=== PATIENT | female | born 1995 | race Two or more races ===

== ENCOUNTER 2024-04-22 12:35 | Emergency (ER) | payer OTHER ==
[~2024-04-22] VITALS: Ht 165.1 cm; Wt 54.4 kg
[2024-04-22] MEDS ORDERED: PRENATAL + DHA1 EAC1 (12:50)
[2024-04-22 14:39] LABS: HEMATOCRIT 36.4 % (36.0-45.00); HEMOGLOBIN 12.6 g/dL (12.0-15.00); MEAN CELL VOLUME 94.5 fL (80.00-100.00); MEAN CORPUSCULAR HEMOGLOBIN 32.6 pg (27.00-32.0); MEAN CORPUSCULAR HGB CONC 34.5 g/dl (32.0-36.0); PLATELET COUNT 192 K/uL (150-450); RED BLOOD COUNT 3.85 M/uL (4.00-6.00); RED CELL DISTRIBUTION WIDTH 12.9 % (11.5-14.5)
[2024-04-22 14:57] LABS: PH,URINE 7.5 (5.0-8.0); URINE APPEARANCE Clear; URINE BILIRRUBIN Negative (NEGATIVE); URINE BLOOD Negative; URINE COLOR Yellow; URINE GLUCOSE Negative (NEGATIVE); URINE KETONE Negative (NEGATIVE); URINE LEUKOCYTE Negative; URINE NITRATE Negative; URINE PROTEIN Negative (NEGATIVE); URINE UROBILINOGEN 0.2 E.U./dl
[2024-04-22 14:59] LABS: URINE BACTERIA 392.8 uL (0.0-1933); URINE EPITHELIAL CELLS 9.1 uL (0.0-38.8); URINE WBC 2.5 uL (0.0-23.2)
[2024-04-22 15:03] LABS: CALCIUM 8.4 mg/dL (8.5-10.1); CREATININE SERUM 0.51 mg/dL (0.55-1.02); GFR 143.59; POTASSIUM 3.86 mEq/L (3.5-5.1)
[2024-04-22] MEDS ORDERED: ACETAMINOPHEN 500 MG GEL..CAP PO ONE (16:30)
== END 2024-04-22 17:54 | disposition home or self-care (01) ==
LOC: ER 12:38
PROVIDERS: Emergency Medicine
DX: O20.8 Other hemorrhage in early pregnancy (principal); Z3A.20 20 weeks gestation of pregnancy; Z88.2 Allergy status to sulfonamides

== ENCOUNTER 2024-05-25 12:24 | Outpatient (CLI) | payer OTHER ==
[~2024-05-25] VITALS: Ht 165.1 cm; Wt 63.5 kg
[2024-05-25 11:36] VITALS: BP 90/59
[~2024-05-25 12:24] MED LIST: PRENATAL + DHA1 EAC1
[2024-05-25] MEDS ORDERED: RINGERS SOLUTION,LACTATED 1,000 ML IV SCH (13:00)
[2024-05-25] MEDS ORDERED: FOLIC ACID0.8 M1 PO (13:03)
[2024-05-25] MEDS ORDERED: ANTIBIOTIC28.4 GM (13:04)
[2024-05-25 13:52] LABS: PH,URINE 7.5 (5.0-8.0); URINE APPEARANCE Clear; URINE BILIRRUBIN Negative (NEGATIVE); URINE BLOOD Negative; URINE COLOR Yellow; URINE GLUCOSE Negative (NEGATIVE); URINE KETONE Negative (NEGATIVE); URINE LEUKOCYTE Negative; URINE NITRATE Negative; URINE PROTEIN Negative (NEGATIVE)
[2024-05-25 13:53] LABS: URINE BACTERIA 2394.9 uL (0.0-1933); URINE EPITHELIAL CELLS 33.7 uL (0.0-38.8); URINE WBC 22.6 uL (0.0-23.2)
[2024-05-25 13:57] LABS: HEMATOCRIT 36.3 % (36.0-45.00); HEMOGLOBIN 12.2 g/dL (12.0-15.00); MEAN CELL VOLUME 95.5 fL (80.00-100.00); MEAN CORPUSCULAR HEMOGLOBIN 31.9 pg (27.00-32.0); MEAN CORPUSCULAR HGB CONC 33.4 g/dl (32.0-36.0); PLATELET COUNT 178 K/uL (150-450); RED BLOOD COUNT 3.81 M/uL (4.00-6.00); RED CELL DISTRIBUTION WIDTH 12.2 % (11.5-14.5)
[2024-05-25 14:05] LABS: URINE CAST 0.44 uL (0.0-1.40); URINE RBC 1.6 uL (0.0-20.8)
[2024-05-25 15:15] VITALS: BP 90/59
[2024-05-25] MEDS ORDERED: CEFAZOLIN SODIUM 1,000 MG VIAL ONE (17:39)
[2024-05-25] MEDS ORDERED: CEFAZOLIN SODIUM 1,000 MG VIAL IV ONE (17:45)
[2024-05-25 19:55] VITALS: BP 98/59
[2024-05-25 23:13] VITALS: BP 99/61
[2024-05-26] MEDS ORDERED: CEFAZOLIN SODIUM 1,000 MG VIAL ONE ×2 (00:11→09:30)
[2024-05-26] MEDS ORDERED: CEFAZOLIN SODIUM 1,000 MG in DEXTROSE 5 % IN WATER 50 ML IV SCH (01:00)
[2024-05-26 03:12] VITALS: BP 87/47; O2SAT 100
[2024-05-26 07:17] VITALS: BP 85/51
[2024-05-26] MEDS ORDERED: CEFAZOLIN SODIUM 1,000 MG VIAL IV SCH (10:00)
[2024-05-26 12:51] VITALS: BP 102/60
== END 2024-05-26 12:51 | disposition home or self-care (01) ==
LOC: OBS/DEL 12:24
PROVIDERS: Obstetrics & Gynecology; ATTEND Obstetrics & Gynecology
DX: O26.892 Other specified pregnancy related conditions, second trimester (principal); O46.92 Antepartum hemorrhage, unspecified, second trimester; Z3A.25 25 weeks gestation of pregnancy

== ENCOUNTER 2024-06-06 16:18 | Outpatient (CLI) | payer OTHER ==
[2024-06-06 15:46] VITALS: BP 87/56
[~2024-06-06 16:18] MED LIST changes: +ANTIBIOTIC28.4 GM; +FOLIC ACID0.8 M1 PO
[2024-06-06] MEDS ORDERED: RINGERS SOLUTION,LACTATED 1,000 ML IV SCH (16:30)
[2024-06-06] MEDS ORDERED: DOCUSATE SODIUM 100MG CAP PO SCH (17:00)
[2024-06-06 17:25] LABS: HEMATOCRIT 36.1 % (36.0-45.00); HEMOGLOBIN 12.2 g/dL (12.0-15.00); MEAN CELL VOLUME 94.4 fL (80.00-100.00); MEAN CORPUSCULAR HGB CONC 33.9 g/dl (32.0-36.0); PLATELET COUNT 197 K/uL (150-450); RED BLOOD COUNT 3.82 M/uL (4.00-6.00); RED CELL DISTRIBUTION WIDTH 12.6 % (11.5-14.5); URINE APPEARANCE Clear; URINE BILIRRUBIN Negative (NEGATIVE); URINE BLOOD Negative; URINE COLOR Yellow; URINE GLUCOSE Negative (NEGATIVE); URINE KETONE Negative (NEGATIVE); URINE LEUKOCYTE Negative; URINE NITRATE Negative; URINE PROTEIN Negative (NEGATIVE)
[2024-06-06 17:26] LABS: URINE BACTERIA 4142.8 uL (0.0-1933); URINE EPITHELIAL CELLS 45.7 uL (0.0-38.8); URINE RBC 2.6 uL (0.0-20.8); URINE WBC 15.1 uL (0.0-23.2)
[2024-06-06 19:13] VITALS: BP 96/58
[2024-06-06 23:23] VITALS: BP 113/67
[2024-06-07 04:00] VITALS: BP 90/60
[2024-06-07 07:24] VITALS: BP 92/56
[2024-06-07 11:21] VITALS: BP 102/67
[2024-06-07 12:46] VITALS: BP 102/67
== END 2024-06-07 13:01 | disposition home or self-care (01) ==
LOC: OBS/DEL 16:18
PROVIDERS: Obstetrics & Gynecology; ATTEND Obstetrics & Gynecology
DX: O26.892 Other specified pregnancy related conditions, second trimester (principal); K59.00 Constipation, unspecified; R10.2 Pelvic and perineal pain; Z3A.26 26 weeks gestation of pregnancy

== ENCOUNTER 2024-06-18 09:21 | Outpatient (CLI) | payer OTHER | END 2024-06-18 09:22 | disposition home or self-care (01) | LOC: PRENATAL 09:21 | PROVIDERS: ATTEND Obstetrics & Gynecology Maternal & Fetal Medicine | DX: O26.849 Uterine size-date discrepancy, unspecified trimester (principal); O36.8199 Decreased fetal movements, unspecified trimester, other fetus; Z3A.29 29 weeks gestation of pregnancy ==

== ENCOUNTER 2024-08-01 09:14 | Outpatient (CLI) | payer OTHER | END 2024-08-01 09:16 | disposition home or self-care (01) | LOC: PRENATAL 09:14 | PROVIDERS: ATTEND Obstetrics & Gynecology Maternal & Fetal Medicine | DX: O26.849 Uterine size-date discrepancy, unspecified trimester (principal); O36.8199 Decreased fetal movements, unspecified trimester, other fetus; Z3A.35 35 weeks gestation of pregnancy ==

== ENCOUNTER 2024-09-03 19:09 | Inpatient (IN) | payer OTHER ==
[~2024-09-03] VITALS: Ht 165.1 cm; Wt 3.2 kg
[2024-09-03 19:14] VITALS: BP 110/66
[2024-09-03 19:19] VITALS: BP 110/66
[2024-09-03] MEDS ORDERED: RINGERS SOLUTION,LACTATED 1,000 ML IV SCH (20:45)
[2024-09-03 20:47] LABS: BASO % 0.3 % (0.1-1.2); EOS # 0.11 (0.04-0.54); EOS % 1.3 % (0.7-7.0); LYMPH # 1.38 (1.18-3.74); LYMPH % 15.7 % (19.3-53.1); MEAN PLATELET VOLUME 12.60 fl (9.4-12.4); MONO # 0.50 (0.24-0.82); MONO % 5.7 % (4.7-12.5); NEUT # 6.71 (1.56-6.13); NEUT % 76.5 % (34.0-71.1); RED CELL DISTRIBUTION WIDTH 12.9 % (11.6-14.4)
[2024-09-03 20:48] LABS: URINE APPEARANCE Clear; URINE BILIRRUBIN Negative (NEGATIVE); URINE BLOOD Negative; URINE COLOR Yellow; URINE GLUCOSE Negative (NEGATIVE); URINE KETONE Negative (NEGATIVE); URINE LEUKOCYTE Negative; URINE NITRATE Negative; URINE PROTEIN Negative (NEGATIVE); URINE UROBILINOGEN 0.2 E.U./dl
[2024-09-03 20:51] LABS: URINE BACTERIA 209.7 uL (0.0-1933); URINE EPITHELIAL CELLS 10.8 uL (0.0-38.8); URINE WBC 1.8 uL (0.0-23.2)
[2024-09-03 21:10] LABS: INR < 0.93
[2024-09-03 21:16] LABS: URINE CAST 0.00 uL (0.0-1.40); URINE RBC 0.2 uL (0.0-20.8)
[2024-09-03] MEDS ORDERED: MISOPROSTOL 25 MCG TABLET VAG STA (22:13)
[2024-09-03] MEDS ORDERED: MORPHINE SULFATE 4 MG/ML CARTRIDGE IV PRN (23:00)
[2024-09-03 23:26] VITALS: BP 113/56; O2SAT 100
[2024-09-04 03:14] VITALS: BP 108/65
[2024-09-04 07:43] VITALS: BP 107/71
[2024-09-04 08:54] VITALS: BP 105/58
[2024-09-04] MEDS ORDERED: DIPHENHYDRAMINE HCL 50 MG/ML VIAL 1ML IV NR (09:30)
[2024-09-04 11:17] VITALS: BP 102/63
[2024-09-04] MEDS ORDERED: OXYTOCIN 1,000 ML IV SCH ×2 (15:00→18:15)
[2024-09-04 15:08] VITALS: BP 104/66
[2024-09-04] MEDS ORDERED: KETOROLAC TROMETHAMINE 60 MG VIAL IM STA (18:08)
[2024-09-04] MEDS ORDERED: CHLORHEXIDINE GLUCONATE 120 ML BOTTLE TOP SCH (18:15)
[2024-09-04] MEDS ORDERED: RINGERS SOLUTION,LACTATED 1,000 ML IV SCH (18:15)
[2024-09-04] MEDS ORDERED: ERYTHROMYCIN BASE OPHT 1GM EACH TUBE OP ONE (18:30)
[2024-09-04] MEDS ORDERED: OXYTOCIN 10 UNITS/ML VIAL IV ONE (18:30)
[2024-09-04] MEDS ORDERED: MORPHINE SULFATE 4 MG/ML VIAL IV ONE ×2 (19:25→20:50)
[2024-09-04 21:24] LABS: BASO % 0.3 % (0.1-1.2); EOS # 0.01 (0.04-0.54); EOS % 0.1 % (0.7-7.0); LYMPH # 0.97 (1.18-3.74); LYMPH % 6.3 % (19.3-53.1); MEAN PLATELET VOLUME 12.50 fl (9.4-12.4); MONO # 0.70 (0.24-0.82); MONO % 4.5 % (4.7-12.5); NEUT # 13.67 (1.56-6.13); NEUT % 88.5 % (34.0-71.1); RED CELL DISTRIBUTION WIDTH 12.6 % (11.6-14.4)
[2024-09-04 22:42] VITALS: BP 114/73
[2024-09-05] MEDS ORDERED: KETOROLAC TROMETHAMINE 30 MG VIAL IM SCH (01:00)
[2024-09-05 02:11] VITALS: BP 107/70
[2024-09-05 05:58] VITALS: BP 100/63
[2024-09-05 08:00] VITALS: BP 109/71
[2024-09-05] MEDS ORDERED: BISACODYL 10 MG/SUPP.RECT SUPP.RECT RECTAL STA (13:25)
[2024-09-05] MEDS ORDERED: ACETAMINOPHEN 325 MG TABLET PO PRN (13:30)
[2024-09-05] MEDS ORDERED: OxyCODONE HCL 5 MG TABLET (ROXICODONE) PO PRN (13:30)
[2024-09-05 16:39] VITALS: BP 100/68
[2024-09-06 02:37] VITALS: BP 102/65
[2024-09-06 08:52] VITALS: BP 120/82
[2024-09-06 16:16] VITALS: BP 109/72
[2024-09-07] VITALS: BP 114/73
[2024-09-07 08:14] VITALS: BP 97/60
== END 2024-09-07 19:03 | disposition home or self-care (01) | DRG 788 ==
LOC: O/R 19:09 → LDR 19:09 → O/R 09-04 16:59 → OB/GYN 09-04 19:17
PROVIDERS: ADMIT Obstetrics & Gynecology; ATTEND Obstetrics & Gynecology
PROC: 3E0P7VZ Introduction of Hormone into Female Reproductive, Via Natural or Artificial Opening (ICD-10-PCS; 2024-09-03)
PROC: 4A1HXCZ Monitoring of Products of Conception, Cardiac Rate, External Approach (ICD-10-PCS; 2024-09-03)
PROC: 3E033VJ Introduction of Other Hormone into Peripheral Vein, Percutaneous Approach (ICD-10-PCS; 2024-09-04)
PROC: 10D00Z1 Extraction of Products of Conception, Low, Open Approach (ICD-10-PCS; principal; 2024-09-04 16:45)
DX: O82 Encounter for cesarean delivery without indication (principal); O62.0 Primary inadequate contractions; Z3A.39 39 weeks gestation of pregnancy; Z37.0 Single live birth

== ENCOUNTER 2025-02-10 18:02 | Emergency (ER) | payer OTHER ==
[~2025-02-10] VITALS: Ht 165.1 cm; Wt 73.5 kg
[2025-02-10 18:26] VITALS: BP 86/60; O2SAT 99
[2025-02-10] MEDS ORDERED: PRENATAL + DHA1 EAC1 PO (18:29)
[2025-02-10] MEDS ORDERED: METOCLOPRAMIDE HCL 5 MG/ML VIAL IM ONE (19:00)
[2025-02-10] MEDS ORDERED: ACETAMINOPHEN 500 MG GEL..CAP PO ONE ×2 (19:00→20:13)
[2025-02-10] MEDS ORDERED: 0.9 % SODIUM CHLORIDE 1,000 ML IV ONE (19:00)
[2025-02-10] MEDS ORDERED: METOCLOPRAMIDE HCL 5 MG/ML VIAL ONE (20:13)
[2025-02-10 20:19] LABS: BASO % 0.2 % (0.1-1.2); EOS # 0.00 (0.04-0.54); EOS % 0.0 % (0.7-7.0); LYMPH # 0.35 (1.18-3.74); LYMPH % 6.2 % (19.3-53.1); MEAN PLATELET VOLUME 10.30 fl (9.4-12.4); MONO # 0.36 (0.24-0.82); MONO % 6.4 % (4.7-12.5); NEUT # 4.93 (1.56-6.13); NEUT % 87.0 % (34.0-71.1); RED CELL DISTRIBUTION WIDTH 12.0 % (11.6-14.4)
[2025-02-10 21:07] LABS: ALT/SGPT 22.0 U/L (12-78); AST/SGOT 16.0 U/L (15-37); BILIRUBIN TOTAL 0.63 mg/dL (0.3-1.2); BUN CREA RATIO 22.0 (7.0-25.0); CREATININE SERUM 0.72 mg/dL (0.55-1.02); GFR 95.77; GLOBULINA 4.3 G/DL (2.4-3.5); GLUCOSE FASTING 88.0 mg/dL (65-100); OSMOLALITY SERUM 284.0 MOSM/KG (275-295)
[2025-02-10 21:24] LABS: COVID-19 AG NEGATIVE (NEGATIVE)
== END 2025-02-10 23:20 | disposition home or self-care (01) ==
LOC: ER 18:03
PROVIDERS: General Practice
DX: B34.9 Viral infection, unspecified (principal); Z88.2 Allergy status to sulfonamides; Z91.0110 Allergy to milk products, unspecified; Z20.822 Contact with and (suspected) exposure to COVID-19